=== PATIENT | female | born 1975 | race African-American/Black ===

== ENCOUNTER 2016-12-19 23:41 | Emergency (ER) | payer OTHER ==
[~2016-12-19] VITALS: Ht 167.6 cm; Wt 85.0 kg
[2016-12-19 23:42] VITALS: BP 136/85; PULSE 72; RESP 16; TEMP 97.9; O2SAT 97
[2016-12-20 00:35] VITALS: BP 119/68; PULSE 63; RESP 17; O2SAT 100
[2016-12-20] MEDS ORDERED: ROBA750T PO (01:21)
[2016-12-20] MEDS ORDERED: IBUP800T23 PO (01:21)
--- NOTE | 2016-12-20 01:26 | PD ---
HPI Chief Complaint: Fall Time Seen by Provider: 01:14 Travel History International Travel<30 days: No Contact w/Intl Traveler<30days: No Traveled to known affect area: No History of Present Illness HPI 41 year-old female presents to the emergency department by private transportation for complaint of low back pain and upper back pain status post non-syncopal slip and fall. Patient reports she was at a restaurant around 11 PM and slipped on the floor landing on her buttocks and injuring her low back with radiation discomfort to her thoracic spine and also contusing her right shoulder and right elbow. Patient denies previous injury of the back or shoulder. Patient states she did not hit her head did not have loss of consciousness did not injure her neck also did not injure her chest ribs has no shortness of breath no abdominal pain no pelvic pain and no lower extremity numbness tingling or weakness saddle anesthesia and does not report any bladder or bowel incontinence. Patient was assisted from her fall by bystanders and her partner. Patient is brought to the emergency room by private vehicle. Patient rates pain as moderate to severe, 7/10. Patient reports pain at the time was severe enough that she did have an episode of emesis. No report of coffee-ground emesis or hematemesis. Patient feels improved at this time. Patient is seen small superficial abrasion to the elbow and thinks her tetanus status is possibly greater than 10 years. PFSH Past Medical History Narrative Medical LAP-BAND; occasional alcohol use; nursing notes reviewed Medical History: Denies Significant Hx Diminished Hearing: No Tetanus Vaccination: Unknown Influenza Vaccination: No ?: Not : 4 Para: 4 Past Surgical History Abdominal Surgery: Yes (LAP BAND 11/2015) Social History Alcohol Use: Yes (OCCASIONALLY) Tobacco Use: No Substance Use: No Allergies-Medications (Allergen,Severity, Reaction): Coded Allergies: No Known Allergies (Unverified , 12/20/16) Reported Meds & Prescriptions Reported Meds & Active Scripts Active Robaxin (Methocarbamol) 750 Mg Tab 750 Mg PO Q6HR Ibuprofen 800 Mg Tab 800 Mg PO Q8H PRN Review of Systems Except as stated in HPI: all other systems reviewed are Neg Physical Exam Narrative GENERAL: Well-developed well-nourished female in no acute distress no respiratory distress; GCS 15 SKIN: Warm and dry. HEAD: Atraumatic. Normocephalic. EYES: Pupils equal and round. No scleral icterus. No injection or drainage. ENT: No nasal bleeding or discharge. Mucous membranes pink and moist. NECK: Trachea midline. No JVD. No midline tenderness to direct palpation along the cervical spine no bony step-off no point tenderness; supple. CARDIOVASCULAR: Regular rate and rhythm. RESPIRATORY: No accessory muscle use. Clear to auscultation. Breath sounds equal bilaterally. GASTROINTESTINAL: Abdomen soft, non-tender, nondistended. Hepatic and splenic margins not palpable. MUSCULOSKELETAL: Extremities without clubbing, cyanosis, or edema. No obvious deformities. Mild tenderness to direct palpation along the lower lumbar spine no para-vertebral muscle spasm; bilaterally negative straight-leg raising; DTRs 2+ and symmetric bilaterally; sensory exam grossly intact bilaterally; radial and dorsalis pedis pulses 2+ and equal bilaterally NEUROLOGICAL: Awake and alert. No obvious cranial nerve deficits. Motor grossly within normal limits. Five out of 5 muscle strength in the arms and legs. Normal speech. PSYCHIATRIC: Appropriate mood and affect; insight and judgment normal. Data Data Last Documented VS Vital Signs Date Time Temp Pulse Resp B/P Pulse Ox O2 Delivery O2 Flow Rate FiO2 12/20/16 00:35 63 17 119/68 100 Room Air 12/19/16 23:42 97.9 Orders Spine, Lumbar - Ltd (Ap & Lat) (12/20/16 ) Shoulder, Complete (>2vws) (12/20/16 ) Spine, Thoracic-Ap/Lat/Sw(3vw) (12/20/16 ) Tetanus/Diphtheria Tox Adult (Tetanus/Di (12/20/16 01:30) Wound Care (12/20/16 01:26) MDM Medical Decision Making Medical Screen Exam Complete: Yes Emergency Medical Condition: Yes Medical Record Reviewed: Yes Interpretation(s) Lumbar sacral x-ray: No acute bony injury no fracture seen degenerative changes noted per reading radiologist Right shoulder x-ray: No acute bony injury per reading radiologist Thoracic spine x-ray: No acute bony injury per reading radiologist " degenerative changes noted Differential Diagnosis Contusion sprain strain fracture cord injury Narrative Course Imaging studies ordered; patient denies states she is a monogamous relationship with her same sex partner times numerous years. Patient is informed of imaging results in stable for outpatient management; patient given prescription for ibuprofen and Robaxin first dose of medication administered in the emergency department Patient encouraged to follow-up with her primary care provider as needed Diagnosis Primary Impression: Lumbar back pain Referrals: Primary Care Physician 2 days Patient Instructions: General Instructions Additional Instructions: Apply ice packs intermittently to areas of soft tissue swelling Take medication as prescribed as needed Return to the emergency department for any concerns or change in condition Increase fluid hydration Follow-up with your primary care provider call office on Wednesday to schedule follow-up appointment Med/Other Pt SpecificInfo: Prescription(s) given Scripts Methocarbamol (Robaxin)750 Mg [id number] Mg PO Q6HR #10 TAB Ref 0 Prov:Steffany Gerber MD 12/20/16 Ibuprofen 800 Mg [id number] Mg PO Q8H PRN (Pain/Inflammation) #12 TAB Ref 0 Prov:Steffany Gerber MD 12/20/16 Disposition: 01 DISCHARGE HOME Condition: Stable Steffany Gerber MD Dec 20, 2016 01:26
[2016-12-20] MEDS ORDERED: TETANUS/DIPHTHERIA TOXOID ADULT 0.5 ML VIAL IM ONE (01:30)
--- NOTE | 2016-12-20 02:09 | RADRPT ---
EXAM DATE/TIME: 12/20/2016 01:57 [facility] COMPARISON: No previous studies available for comparison. INDICATIONS : Pt fell tonight- pain to upper and lower back and right shoulder. MEDICAL HISTORY : None. SURGICAL HISTORY : Lap band ENCOUNTER: Initial ACUITY: 1 day PAIN SCORE: 8/10 LOCATION: Bilateral Lumbar FINDINGS: 3 views of the lumbar spine. Port and catheter indicating prior gastric band surgery. Bone alignment within normal limits. No evidence of fracture. Small endplate osteophytes at every level of the lumb ar spine. Mild to moderate bony facet hypertrophy at every level of the lumbar spine. CONCLUSION: No evidence of fracture. Mild to moderate bony degenerative findings. Santiago Mejía MD on December 20, 2016 at 2:06 Board Certified Radiologist. This report was verified electronically.
--- NOTE | 2016-12-20 02:11 | RADRPT ---
EXAM DATE/TIME: 12/20/2016 01:59 [facility] COMPARISON: No previous studies available for comparison. INDICATIONS : Pt fell tonight- pain to upper and lower back and right shoulder. MEDICAL HISTORY : None. SURGICAL HISTORY : Lapband ENCOUNTER: Initial ACUITY: 1 day PAIN SCORE: 7/10 LOCATION: Bilateral Thoracic FINDINGS: 3 views thoracic spine. Bone alignment within normal limits. No evidence of fracture. Small endplate osteophytes at multiple levels of the midthoracic spine. 3 mm calcific density in the region of the right kidney indicating possible renal calculus. CONCLUSION: No evidence of fracture. Mid thoracic bony degenerative findings. Santiago Mejía MD on December 20, 2016 at 2:08 Board Certified Radiologist. This report was verified electronically.
--- NOTE | 2016-12-20 02:12 | RADRPT ---
EXAM DATE/TIME: 12/20/2016 02:00 [facility] COMPARISON: No previous studies available for comparison. INDICATIONS : Pt fell tonight- pain to upper and lower back and right shoulder. MEDICAL HISTORY : None. SURGICAL HISTORY : None. ENCOUNTER: Initial ACUITY: 1 day PAIN SCORE: 7/10 LOCATION: Right Shoulder FINDINGS: 4 views of the right shoulder. Bone alignment within normal limits. No evidence of fracture. Glenohu meral joint within normal limits. Acromioclavicular joint within normal limits. CONCLUSION: No evidence of fracture. Santiago Mejía MD on December 20, 2016 at 2:10 Board Certified Radiologist. This report was verified electronically.
[2016-12-20 02:30] VITALS: BP 163/89
[2016-12-20] MEDS ORDERED: IBUPROFEN 800 MG TAB PO ONE (02:30)
[2016-12-20] MEDS ORDERED: METHOCARBAMOL 500 MG TAB PO ONE (02:30)
== END 2016-12-20 02:58 | disposition home or self-care (01) ==
LOC: NEPC 23:41
DX: M54.5 Low back pain (principal); W01.0XXA Fall on same level from slipping, tripping and stumbling without subsequent striking against object, initial encounter; Y93.9 Activity, unspecified; Y92.511 Restaurant or cafe as the place of occurrence of the external cause
CPT/HCPCS: 72072; 72100; 73030; 90471; 90714